=== PATIENT | male | born 1975 | race Caucasian/White ===

== ENCOUNTER 2017-07-13 13:03 | Emergency (ER) | payer OTHER ==
[~2017-07-13] VITALS: Ht 175.3 cm; Wt 105.9 kg
[~2017-07-13 13:03] MED LIST: ESOM40CA PO; FLUT9.9S INH; MELA10TA PO
[2017-07-13] MEDS ORDERED: DIPHENHYDRAMINE 50 MG/ML, 1ML ONE (13:27)
[2017-07-13] MEDS ORDERED: EPINEPHRINE 1 MG/ML, 1ML IM ONE (13:30)
[2017-07-13] MEDS ORDERED: DIPHENHYDRAMINE 50 MG/ML, 1ML IVPush ONE (13:30)
[2017-07-13] MEDS ORDERED: SODIUM CHLORIDE FLUSH 10ML SYR IVF ONE (13:30)
[2017-07-13] MEDS ORDERED: EPINEPHRINE 1 MG/ML, 1ML ONE (13:36)
[2017-07-13 15:04] VITALS: BP 101/64
== END 2017-07-13 15:41 | disposition home or self-care (01) ==
LOC: ED 15:30
DX: T78.2XXA Anaphylactic shock, unspecified, initial encounter (principal)
CPT/HCPCS: 96372; 96374; 99284; J0171; J1200; J7512

== ENCOUNTER → 2020-08-19 | Outpatient (CLI) | payer OTHER ==
[2020-08-19 13:34] LABS: ALBUMIN 4.2 g/dL (3.4-5.0); BILIRUBIN, DIRECT 0.1 mg/dL (0.1-0.2)
[2020-08-19 13:36] LABS: BILIRUBIN,INDIRECT 0.4 mg/dL (0.0-2.0); BILIRUBIN,TOTAL 0.5 mg/dL (0.2-1.0); TOTAL PROTEIN 8.2 g/dL (6.4-8.2)
== END | disposition home or self-care (01) ==
LOC: RAD 12:23
PROVIDERS: ATTEND Orthopaedic Surgery
DX: R06.02 Shortness of breath (principal); M13.80 Other specified arthritis, unspecified site; M79.0 Rheumatism, unspecified; K76.9 Liver disease, unspecified
CPT/HCPCS: 36415; 71046; 72072; 72100; 80076; 86430